=== PATIENT | female | born 1940 | race Caucasian/White ===

== ENCOUNTER 2016-12-23 10:35 | Inpatient (IN) | payer OTHER ==
[~2016-12-23] VITALS: Ht 172.7 cm; Wt 90.7 kg
--- NOTE | ~2016-12-23 | D ---
[facility] [place] [address] DISCHARGE SUMMARY Name: NEIL WILHELM Room #: 423-1 ADM IN M.R.#: [id number] Admission: 12/23/16 Attend Phys: Te Castellano MD Discharge: Date of : 40 Report #: [id number] THIS REPORT FOR: //name// CC: Shahbaz Zavala DATE OF SERVICE: 12/30/2016 HISTORY OF PRESENT ILLNESS: The patient is a 76-year-old female who presented to the Emergency Room with nausea, vomiting, and back pain. Please refer to the admission H and P for details. HOSPITALIZATION COURSE: The patient was hospitalized at [facility]. The patient was initially treated for gastroenteritis. She was started on Protonix. GI team was consulted. EGD showed gastritis, but no other major abnormalities revealed. For the back pain, the patient underwent MRI of the back that showed L1 fracture. IR was consulted, the patient had kyphoplasty. After the procedure, the pain almost resolved. The patient did well. The patient also has history of coronary artery disease. She had stress test that was negative. Cardiology has signed off the case. The patient has history of adrenal insufficiency, due to being on steroids for a long time for reported arthritis. Details are not specified. After increasing the prednisone dose, patient's self being improved significantly, and nausea has also resolved. Currently, the patient's condition is acceptable, as documented in the patient's chart. DISCHARGE DIAGNOSES: 1. Nausea and vomiting, resolved. EGD revealed gastritis. The patient is started on PPI. 2. Atypical chest pain, negative evaluation for acute coronary syndrome. Unremarkable stress test. 3. Back pain due to L1 vertebral fracture. Status post kyphoplasty. Clinically much better. 4. Chronic kidney disease stage 3. 5. Diabetes mellitus type 2. 6. Anxiety. 7. Dyslipidemia. 8. adrenal insufficiency, due to being on prednisone for reported "arthritis". Details are not specified. [facility] [address] [place] [address] DISCHARGE SUMMARY Name: NEIL WILHELM Room #: 423-1 ADM IN ..#: [id number] Admission: 12/23/16 Attend Phys: Te Castellano MD Discharge: Date of : 40 Report #: [id number] DISPOSITION: The patient is discharged home on home health. DISCHARGE MEDICATIONS: Please refer to the medication reconciliation list. FOLLOWUP PLAN: Follow up with the primary care physician in 1-2 weeks. I spent about 30 minutes to coordinate the patient's discharge from the hospital. By: 1134 1159 [place] MD /nt
--- NOTE | ~2016-12-23 | HC ---
[facility] [place] [address] CONSULTATION Name: NEIL WILHELM Room #: 423-1 ADM IN M.R.#: [id number] Admission: 12/23/16 Attend Phys: Te Castellano MD Discharge: Date of : 40 Report #: [id number] THIS REPORT FOR: //name// CC: Shahbaz Zavala REQUESTING PHYSICIAN: Dr. Te Castellano. CHIEF COMPLAINT: Abdominal pain and chest pain. HISTORY OF PRESENT ILLNESS: The patient is a 76-year-old female, with a history of diffuse coronary artery disease, who presented to the emergency room at [facility] with a resting chest discomfort, described predominantly as a neck discomfort, worsened with swallowing. It radiated downwards towards her chest. It is not associated with physical activity. She has chronic shortness of breath, which is new according to the patient. She is recovering from a fall with low back injury and was apparently hospitalized at [facility] after being initially evaluated at [facility]. She denies fevers or chills. She denies palpitations. She has a history of chronic lung disease and does use oxygen intermittently. PAST MEDICAL HISTORY: Coronary artery disease, status post cardiac catheterization in 2014 in [place] according to the patient. They thought she was having a heart attack, but was to told everything was "clear". Details of this are not available, she has hypertension, hyperlipidemia, and diabetes. She has chronic lung disease. She quit smoking this past August. HOME MEDICATIONS: Include O2 2 liters, albuterol, Advair, Maxzide daily, carvedilol 25 mg, which she only takes apparently once a day, aspirin 81 mg daily, atorvastatin 40 mg daily, fenofibrate 145 mg daily, and she has been on pain medicines, and she takes Lantus insulin. SOCIAL HISTORY: She is . Her is a patient of mine. FAMILY HISTORY: Positive for heart disease in her mother, at age 47. ALLERGIES: PENICILLIN, CONTRAST DYE, CODEINE, and METFORMIN. REVIEW OF SYSTEMS: [facility] [address] [place] [address] CONSULTATION Name: NEIL WILHELM Room #: 423-1 ADM IN ..#: [id number] Admission: 12/23/16 Attend Phys: Te Castellano MD Discharge: Date of : 40 Report #: [id number] GENERAL: Positive chills, no fevers. CARDIOVASCULAR: Positive for chest discomfort, no orthopnea, no PND, and no palpitations. NEUROLOGIC: No syncope or seizures. HEMATOLOGIC: No anemia. RENAL: No history of kidney failure. THROAT: Has dysphagia as noted above. GASTROINTESTINAL: Denies nausea or vomiting. Denies melena or hematochezia. CARDIOVASCULAR: Positive dyspnea on exertion. Positive chest discomfort. SKIN: No rashes. PHYSICAL EXAMINATION: VITAL SIGNS: Blood pressure is 148/92, pulse is 104, and respiratory rate is 18. GENERAL: This is a pleasant elderly female. She is alert and oriented. In no apparent distress. HEENT: EOMs intact. There is no facial asymmetry. NECK: Supple. There is no jugular venous distention. CARDIOVASCULAR: Regular. There is no murmur or rub. LUNGS: Clear to auscultation. ABDOMEN: Nontender. There is no rebound or guarding. EXTREMITIES: There is no peripheral edema. SKIN: Warm and dry. PSYCHIATRIC: The patient has appropriate mood and affect. DIAGNOSTIC DATA: Electrocardiogram dated 12/23/2016 shows a sinus rhythm with sinus tachycardia with normal ST segments. There is a comparison study from 2015, which was unchanged. LABORATORY DATA: Her hemoglobin is 12.2, white blood cell count is 9.4, and platelet count is 279,000. Sodium is 143, potassium is 3.5, chloride is 106, CO2 is 26, BUN is 28, creatinine is 1.3. Troponin I is 0.04 times 3 sets. IMAGING: CT of the abdomen and pelvis: Compression fracture, no acute abdominal or pelvic process. Chest x-ray shows scarring in the lung bases, old left rib fracture healed. No evidence of congestive heart failure or pneumonia. IMPRESSION: 1. Chest pain: Her symptoms could be related to worsening of her coronary artery disease process, or an esophageal abnormalities, such as hiatal hernia, given her distribution of symptoms. I arranged for further evaluation with a pharmacologic stress test. 2. Coronary artery disease: Stress test is ordered. If this is negative, I would continue with conservative medical therapy including aspirin and her carvedilol therapy. Nitrates may be helpful p.r.n. 3. Hypertension, stable. [address] [address] CONSULTATION Name: NEIL WILHELM Room #: 423-1 ADM IN M.R.#: [id number] Admission: 12/23/16 Attend Phys: Te Castellano MD Discharge: Date of : 40 Report #: [id number] 4. Diabetes mellitus, per our hospital colleagues. If her stress test is negative, she can follow up routinely with our nurse practitioner within 4 weeks at our [place] office or [facility] [place] office. <ELECTRONICALLY SIGNED> By: Jose R Richmond MD, FACC 12/30/16 0847 0842 1525 Jose R Richmond MD, FACC /nt
--- NOTE | ~2016-12-23 | P ---
[facility] [place] [address] PROCEDURE REPORT Name: NEIL WILHELM Room #: 423-1 ADM IN M.R.#: [id number] Admission: 12/23/16 Attend Phys: Te Castellano MD Discharge: Date of : 40 Report #: [id number] THIS REPORT FOR: //name// CC: Shahbaz Zavala DATE OF SERVICE: 12/25/2016 PROCEDURE PERFORMED: Upper endoscopy with biopsies and incomplete colonoscopy due to poor prep. HISTORY OF PRESENT ILLNESS: The patient is a 76-year-old female with history of chest pain. She does have a history of gastroesophageal reflux disease, takes Nexium on a daily basis, also takes aspirin as well as other medications. She has a history of colon polyps approximately 4-5 years ago, had a post-polypectomy bleed apparently at that time as well. Cardiac workup has been negative. Plan is for EGD and colonoscopy today. Of note, the patient also has a recent moderate superior endplate compression fracture of the L1 vertebral body. DESCRIPTION OF PROCEDURE #1: The risks and benefits of the procedure were explained to the patient, those risks including but not limited to bleeding, perforation, the risk of sedation. She understood these risks and gave informed consent. Sedation was given using propofol per anesthesia. Next, using a standard [employer] upper endoscope, the scope was placed in the patient's mouth and advanced under direct vision through the esophagus, stomach and into the second portion of the duodenum. The larynx was normal in appearance. The esophagus was normal throughout. The GE junction was normal. No evidence of esophagitis. Upon entering the stomach, a small hiatal hernia was noted. There was a mild gastritis noticed in the body. Biopsies were obtained to rule out H. pylori. No evidence of ulcerations or erosions. The pylorus was normal and patent. The duodenal bulb and first portion were normal. A moderate sized duodenal diverticulum was noted in the second portion of the duodenum. No evidence of ulcerations. Biopsies were obtained to rule out the possibility of celiac sprue. The scope was then withdrawn and the procedure terminated. The patient tolerated the procedure well. IMPRESSION: 1. Mild gastritis. 2. Small hiatal hernia. 3. Duodenal diverticulum. 4. Otherwise, normal upper endoscopy. RECOMMENDATIONS: [address] [address] PROCEDURE REPORT Name: NEIL WILHELM Room #: 423-1 ADM IN M.R.#: [id number] Admission: 12/23/16 Attend Phys: Te Castellano MD Discharge: Date of : 40 Report #: [id number] 1. Await biopsy results. 2. Continue PPI therapy. 3. We will proceed with colonoscopy next today. DESCRIPTION OF PROCEDURE #2: The bed was then turned and a digital rectal exam was initially performed, which actually showed small external hemorrhoids, otherwise normal. Next, using a standard [employer] colonoscope, the scope was placed in the patient's anus and advanced under direct vision through the rectum into the sigmoid. It was obvious at this point the prep was very poor with a large amount of solid stool. Therefore, the scope was then withdrawn and the procedure terminated. The patient tolerated the procedure well. IMPRESSION: Incomplete colonoscopy secondary to poor prep. RECOMMENDATIONS: Would recommend repeat potentially as an outpatient with 2-day prep or Suprep at that time. Thank you for allowing me to participate in her care. <ELECTRONICALLY SIGNED> By: Franco Bernard MD 12/26/16 1217 1423 2244 Franco Bernard MD /nt
--- NOTE | ~2016-12-23 | EKG ---
[address] [address] ELECTROCARDIOGRAM REPORT Name: NEIL WILHELM Room #: 423-1 ADM IN M.R.#: [id number] Admission: 12/23/16 Attend Phys: Te Castellano MD Discharge: Date of : 40 Report #: [id number] THIS REPORT FOR: //name// [facility] ED Test Date: 2016-12-23 Test Time: 10:49:56 Pat Name: NEIL WILHELM Department: Room: [facility] Gender: F Diversity Intern: VINAY : 1940 Requested By: Marian Vigil Order Number: [id number] MD: Rory Gay Measurements Intervals [place] Rate: 110 P: 63 TX: 140 QRS: 12 QRSD: 82 T: 66 QT: 324 QTc: 439 Interpretive Statements Sinus tachycardia Atrial premature complexes Minimal ST depression, lateral leads Electronically Signed On 12-27-2016 8:11:27 CDT by Rory Gay [email or web address] <ELECTRONICALLY SIGNED> By: Rory Gay MD 12/27/16 0811 1049 1049 Rory Gay MD /TOSHIA
--- NOTE | ~2016-12-23 | CARDNUC ---
[facility] [place] [address] CARDIAC NUCLEAR IMAGING REPORT Name: NEIL WILHELM Room #: 423-1 ADM IN M.R.#: [id number] Admission: 12/23/16 Attend Phys: Alda Johnson Discharge: Date of : 40 Date of Service: 12/24/16 1617 Report #: [id number] THIS REPORT FOR: //name// CC: Shahbaz Zavala This is a Lexiscan Cardiolite stress test. VASODILATOR GATED SPECT MYOCARDIAL PERFUSION IMAGING: Regadenoson. PRIMARY CARE PHYSICIAN: Shahbaz Akins MD. HOSPITALIST: Te Castellano MD. REFERRING SPECIAL POLICE OFFICER: Gilbert Zavala MD and Jose R Richmond MD [facility] DATE OF STUDY: 12/24/2016. INDICATIONS FOR STUDY: Chest pain and dyspnea. RISK FACTORS: Age, hyperlipidemia, hypertension, diabetes, tobacco use and family history. CARDIAC HISTORY: Known coronary artery disease status post myocardial infarction. CARDIAC MEDICATIONS: Aspirin, Lipitor, hydrochlorothiazide triamterene, magnesium and insulin. GENDER: Female. PROCEDURE: The patient was given 0.4 mg of intravenous regadenoson (Lexiscan) administered over approximately 20 seconds. The patient did not complain of chest discomfort during the infusion but did have nausea and vomiting. In response to complaints of chest discomfort the patient was given intravenous aminophylline 5 mL IV with resolution of the nausea and vomiting. At baseline the BP was 151/82 and the HR was 96; at completion of the regadenoson infusion the BP was 165/101 and the HR was 124. At completion of the recovery phase the BP was 149/76 and the HR was 108. The baseline EKG demonstrates normal sinus rhythm with low voltage. The EKG at completion of the administration of regadenoson demonstrated no significant change in EKG during or after regadenoson administration. There was no significant ST-segment depression during or after regadenoson administration. Rhythm disturbances included none. [facility] [place] [address] CARDIAC NUCLEAR IMAGING REPORT Name: NEIL WILHELM Room #: 423-1 ADM IN M.R.#: [id number] Admission: 12/23/16 Attend Phys: Alda Johnson Discharge: Date of : 40 Date of Service: 12/24/16 1617 Report #: [id number] Gated-SPECT myocardial perfusion imaging was performed using a 1-day imaging protocol and a single isotope technique. The 10.7 mCi of Tc-99m sestamibi was administered intravenously at rest; 33.6 mCi of Tc-99m sestamibi was administered intravenously within 20 seconds of the completion of the administration of regadenoson. Imaging was obtained in the supine position and when feasible, adjunctive stress imaging in the prone position was obtained. FINDINGS: The overall quality of the study was adequate. There was minimal evidence of attenuation artifact. There was no evidence of abnormal extracardiac uptake of the radionuclide. The baseline imaging study demonstrated a small mild apical defect and a small mild inferior defect. The imaging obtained following the administration of the vasodilator demonstrated only a very small, very mild apical defect and a very small, very mild inferior defect. There were therefore no reversible defects seen. There was no evidence of myocardial ischemia. The fixed defect seen likely represents attenuation artifact. On gated analysis the left ventricle demonstrated hyperdynamic left ventricular systolic function with an ejection fraction of 93%. The left ventricle was of normal size at rest and did not appear by visual inspection to dilate with the administration of the vasodilator. To my eye, the TID was less than 1. This patient had very small left ventricular internal dimensions, so computer measurement of the endocardial border was probably compromised. The TID calculated by the computer was 1.19, but again to my eye, the TID was less than 1. IMPRESSIONS: CLINICAL RESPONSE: Probably nonischemic. STRESS EKG RESPONSE: By strict criteria, nondiagnostic due to heart rate that was inadequate to exclude ischemia; however, the heart rate was very near a diagnostic heart rate and this is probably a nonischemic EKG response. MYOCARDIAL PERFUSION STUDY: Nonischemic. FUNCTIONAL CAPACITY: Not assessed. CONCLUSIONS: The Lexiscan Cardiolite stress test demonstrates low probability for myocardial ischemia. Overall, this is a low risk Lexiscan Cardiolite stress test. <ELECTRONICALLY SIGNED> By: Josy Reyna MD, [facility] 12/30/16 1124 1617 1644 Josy Reyna MD, FACC /nt
--- NOTE | ~2016-12-23 | S ---
[facility] [place] [address] SURGICAL PATH RPT PROCEDURE Name: NEIL LYLE Room #: 423-1 ADM IN M.R.#: [id number] Admission: 12/23/16 Date of : 40 Discharge: Report #: [id number] Path Case #: [id number] PATHOLOGY REPORT COLLECTION DATE: 12/25/2016 RECEIVED DATE: 12/27/2016 SUBMITTING PHYS: Dr. Franco Bernard OTHER PHYS: Dr. Gilbert Tiwari SPECIMEN(S) RECEIVED: A.Bx of duodenum B.Bx of gastritis * * * * * * * * * * * * FINAL DIAGNOSIS: A. Small bowel mucosa, duodenum, endoscopic biopsy: - Focal acute inflammation with fundic-type metaplasia, compatible with mild peptic duodenitis. - No significant villous blunting or increase in intraepithelial lymphocytosis identified. B. Gastric mucosa, gastritis, endoscopic biopsy: - Moderate reactive gastropathy with focal active gastritis. - Negative for intestinal metaplasia or atrophy. - Negative for Helicobacter pylori. COMMENT: Helicobacter pylori immunohistochemical stain performed on block B1 negative. (IUV:csd; d/t: 12/28/2016) PATHOLOGIST: Sophia Florez M.D. REPORT ELECTRONICALLY SIGNED BY: Sophia Florez M.D. DATE/TIME: 12/28/2016 16:56 * * * * * * * * * * * * GROSS PATHOLOGY: A. Received in formalin labeled "Neil Lyle, BX duodenum," are 4 segments of rich soft tissue measuring 1.4 x 0.3 x 0.2 cm in aggregate dimensions and ranging from 0.1 to 0.6 cm in maximum dimension. The specimen is submitted entirely in cassette A1. B. Received in formalin labeled " Neil Lyle BX of gastritis," are 5 segments of rich soft tissue measuring 1.7 x 0.2 x 0.2 cm in aggregate dimensions and ranging from 0.2 to 0.6 cm in maximum dimension. The specimen is submitted entirely in cassette B1. [address] [address] SURGICAL PATH RPT PROCEDURE Name: NEIL LYLE Room #: 423-1 ADM IN M.R.#: [id number] Admission: 12/23/16 Date of : 40 Discharge: Report #: [id number] Path Case #: [id number] (GISEL; 12/27/2016) CLINICAL HISTORY: N/V, abdominal pain INITIAL CPT CODE(S): A; 24257 B; 42202, 86285 Professional services performed by [facility] at [address], [place] [address] Technical services performed by [facility] at [address] [place] [address], [address], [place] [address]. [facility] [address] [address] [place] [address] PHONE: [phone] DIRECTOR: Nadir Murdock M.D. * * * END OF REPORT * * *
[~2016-12-23 10:35] MED LIST: ACETAMINOPHEN325 M1 PO; ADULT LOW DOSE81 MG PO; ADVAIR HFA115 MCG/21 INH; APAP500 PO; ATIVAN0.5 MG PO; AVELOX 400 MG400 M1 PO; BYETTA PEN 11 PENIN1 SUBQ; CARVEDILOL25 MG PO; DUONEB 2.5-0.5 M3 ML INH; GLIPIZIDE ER10 MG PO; GLUCOPHAGE XR500 MG PO; GLUCOPHAGE XR750 MG PO; GLUMETZA1000 PO; LANTUS SQ; LANTUS SUBQ; LIPITOR40 MG PO; LOTREL 5-20 MG1 EACH PO; MAXZIDE-25 MG1 EACH PO; MUCINEX600 MG PO; NOVOLOG100 UNIT/1 PO; NOVOLOG100 UNIT/1 SQ; PREDNISONE 10 M10 M1; PROTONIX40 M1 PO; PROTONIX40 M2 PO; TRICOR145 MG PO; VICTOZA0.6 MG/0.1 SUBQ; VOLTAREN GEL 1100 G2 TOP
[2016-12-23 10:42] VITALS: BP 151/91
[2016-12-23] MEDS ORDERED: LIDODERM 5%1 PATC1 TRANSDERM (11:08)
[2016-12-23] MEDS ORDERED: FLEXERIL PO (11:08)
[2016-12-23] MEDS ORDERED: CAL-GEST200 MG PO (11:09)
[2016-12-23] MEDS ORDERED: TYLENOL325 MG PO (11:09)
[2016-12-23] MEDS ORDERED: MAGOX 400400 MG PO (11:09)
[2016-12-23] MEDS ORDERED: ATORVASTATIN CA40 MG PO (11:09)
[2016-12-23] MEDS ORDERED: PREDNISONE 10 M10 MG PO (11:09)
[2016-12-23] MEDS ORDERED: MAXZIDE-25 MG1 EACH PO (11:10)
[2016-12-23] MEDS ORDERED: CYMBALTA20 MG PO (11:10)
[2016-12-23] MEDS ORDERED: COREG25 MG PO (11:10)
[2016-12-23 11:12] LABS: BASOPHILS 0.6 % (0.0-2.0); EOSINOPHILS 2.2 % (0.0-3.0); HEMATOCRIT 43.9 % (37.0-47.0); LYMPHOCYTES 32.2 % (24.0-44.0); MCH 29.8 pg (26.0-34.0); MCV 93.1 fL (80.0-100.0); PLATELET COUNT 264 thou/uL (150-400); RBC 4.72 mil/uL (4.20-5.00); RDW 14.4 % (10.5-14.5); WBC 14.2 thou/uL (4.0-11.0)
[2016-12-23 11:14] LABS: MANUAL DIFF NO
[2016-12-23 11:15] LABS: CALCIUM 9.2 mg/dL (8.5-10.1); CREATININE 1.6 mg/dL (0.6-1.0); POTASSIUM 3.9 mmol/L (3.5-5.1)
[2016-12-23 11:35] LABS: ALBUMIN 3.8 g/dL (3.4-5.0); ALKALINE PHOSPHATASE 158 U/L (46-116); DIRECT BILIRUBIN 0.3 mg/dL (<0.1-0.3); NT-PRO BRAIN NAT PEPTIDE 104 pg/mL (<300); SGOT 20 U/L (15-37); SGPT 24 U/L (30-65); TOTAL BILIRUBIN 0.7 mg/dL (<0.1-1.0); TOTAL PROTEIN 7.8 g/dL (6.4-8.2); TROPONIN-I < 0.04 ng/mL (<0.04-0.07)
[2016-12-23 14:43] VITALS: BP 149/82
[2016-12-23 16:21] VITALS: BP 146/75
[2016-12-23 16:52] LABS: TROPONIN-I < 0.04 ng/mL (<0.04-0.07)
[2016-12-23 20:00] VITALS: BP 149/80
[2016-12-23 22:33] LABS: TROPONIN-I < 0.04 ng/mL (<0.04-0.07)
[2016-12-24 04:00] VITALS: BP 141/86
[2016-12-24 05:52] LABS: HEMATOCRIT 37.7 % (37.0-47.0); HEMOGLOBIN 12.2 gm/dL (12.0-15.0); MCH 30.4 pg (26.0-34.0); MCHC 32.4 g/dL (28.0-37.0); MCV 93.7 fL (80.0-100.0); RBC 4.03 mil/uL (4.20-5.00); RDW 14.2 % (10.5-14.5); WBC 9.4 thou/uL (4.0-11.0)
[2016-12-24 06:09] LABS: ALBUMIN 3.1 g/dL (3.4-5.0); CALCIUM 8.5 mg/dL (8.5-10.1); CREATININE 1.3 mg/dL (0.6-1.0); POTASSIUM 3.5 mmol/L (3.5-5.1); TOTAL BILIRUBIN 0.6 mg/dL (<0.1-1.0); TOTAL PROTEIN 6.4 g/dL (6.4-8.2)
[2016-12-24 07:52] VITALS: BP 148/92
[2016-12-24 13:10] VITALS: BP 130/66
[2016-12-24 15:28] VITALS: BP 141/75
[2016-12-24] MEDS ORDERED: TRULICITY0.75 MG/0. SQ (19:28)
[2016-12-24 20:00] VITALS: BP 132/65
[2016-12-25 04:00] VITALS: BP 132/62
[2016-12-25 04:42] LABS: HEMATOCRIT 36.3 % (37.0-47.0); HEMOGLOBIN 12.2 gm/dL (12.0-15.0); MCH 31.1 pg (26.0-34.0); MCHC 33.5 g/dL (28.0-37.0); MCV 92.7 fL (80.0-100.0); RBC 3.91 mil/uL (4.20-5.00); RDW 14.2 % (10.5-14.5); WBC 9.3 thou/uL (4.0-11.0)
[2016-12-25 05:03] LABS: CALCIUM 8.9 mg/dL (8.5-10.1); CREATININE 1.3 mg/dL (0.6-1.0)
[2016-12-25 05:24] LABS: POTASSIUM 4.6 mmol/L (3.5-5.1)
[2016-12-25 06:58] VITALS: BP 135/78
[2016-12-25 16:07] VITALS: BP 145/74
[2016-12-25 20:15] VITALS: BP 126/65
[2016-12-26 04:30] VITALS: BP 132/67
[2016-12-26 07:44] VITALS: BP 98/73
[2016-12-26 07:52] VITALS: BP 116/68
[2016-12-26 09:35] VITALS: BP 133/64
[2016-12-26 15:44] VITALS: BP 111/73
[2016-12-26 20:00] VITALS: BP 130/82
[2016-12-27 04:00] VITALS: BP 101/54
[2016-12-27 07:20] VITALS: BP 125/66
[2016-12-27 11:02] LABS: HEMATOCRIT 34.7 % (37.0-47.0); HEMOGLOBIN 11.7 gm/dL (12.0-15.0); MCH 30.8 pg (26.0-34.0); MCHC 33.7 g/dL (28.0-37.0); MCV 91.4 fL (80.0-100.0); RBC 3.8 mil/uL (4.20-5.00); RDW 13.9 % (10.5-14.5); WBC 9.5 thou/uL (4.0-11.0)
[2016-12-27 11:17] LABS: INR 1.1; PROTIME 11.4 Seconds (9.3-11.4)
[2016-12-27 15:58] VITALS: BP 102/45
[2016-12-27 20:42] VITALS: BP 134/77
[2016-12-28] VITALS (10 sets, daily range): BP systolic 101–149; BP diastolic 49–79
[2016-12-29 04:18] VITALS: BP 101/51
[2016-12-29 07:44] VITALS: BP 147/78
[2016-12-29 16:17] VITALS: BP 128/55
[2016-12-29 20:00] VITALS: BP 132/69
[2016-12-30 04:00] VITALS: BP 136/60
[2016-12-30 07:35] VITALS: BP 151/72
[2016-12-30] MEDS ORDERED: PANTOPRAZOLE SO40 M1 PO (11:38)
[2016-12-30] MEDS ORDERED: PREDNISONE 10 M10 MG PO (11:38)
[2016-12-30 12:19] VITALS: BP 151/72
[2016-12-30 13:22] VITALS: BP 151/72
== END 2016-12-30 14:34 | disposition home health service (06) | DRG 515 ==
LOC: ER 10:35 → 4E 14:02 → EROBS 14:02 → 4E 14:45
PROVIDERS: Emergency Medicine; Family Medicine; Nurse Practitioner Family; Radiology Vascular & Interventional Radiology
PROC: 0DB68ZX Excision of Stomach, Via Natural or Artificial Opening Endoscopic, Diagnostic (ICD-10-PCS; 2016-12-25)
PROC: 0DB98ZX Excision of Duodenum, Via Natural or Artificial Opening Endoscopic, Diagnostic (ICD-10-PCS; 2016-12-25)
PROC: 0DJD8ZZ Inspection of Lower Intestinal Tract, Via Natural or Artificial Opening Endoscopic (ICD-10-PCS; 2016-12-25)
PROC: 0QU03JZ Supplement Lumbar Vertebra with Synthetic Substitute, Percutaneous Approach (ICD-10-PCS; principal; 2016-12-28)
PROC: 0QS03ZZ Reposition Lumbar Vertebra, Percutaneous Approach (ICD-10-PCS; principal; 2016-12-28)
DX: S32.019A Unspecified fracture of first lumbar vertebra, initial encounter for closed fracture (principal); R65.11 Systemic inflammatory response syndrome (SIRS) of non-infectious origin with acute organ dysfunction; N17.9 Acute kidney failure, unspecified; I13.0 Hypertensive heart and chronic kidney disease with heart failure and stage 1 through stage 4 chronic kidney disease, or unspecified chronic kidney disease; E27.3 Drug-induced adrenocortical insufficiency; E78.5 Hyperlipidemia, unspecified; M19.012 Primary osteoarthritis, left shoulder; F41.9 Anxiety disorder, unspecified; I25.10 Atherosclerotic heart disease of native coronary artery without angina pectoris; K44.9 Diaphragmatic hernia without obstruction or gangrene; K29.70 Gastritis, unspecified, without bleeding; E11.22 Type 2 diabetes mellitus with diabetic chronic kidney disease; N18.3 Chronic kidney disease, stage 3 (moderate); I50.9 Heart failure, unspecified; M81.0 Age-related osteoporosis without current pathological fracture; J44.9 Chronic obstructive pulmonary disease, unspecified; K21.9 Gastro-esophageal reflux disease without esophagitis; Y93.89 Activity, other specified; W18.39XA Other fall on same level, initial encounter; Y92.89 Other specified places as the place of occurrence of the external cause; Y99.8 Other external cause status; Z90.49 Acquired absence of other specified parts of digestive tract; I25.2 Old myocardial infarction; Z88.0 Allergy status to penicillin; Z88.6 Allergy status to analgesic agent; Z91.041 Radiographic dye allergy status; Z87.891 Personal history of nicotine dependence; Z82.49 Family history of ischemic heart disease and other diseases of the circulatory system; Z80.0 Family history of malignant neoplasm of digestive organs; Z80.1 Family history of malignant neoplasm of trachea, bronchus and lung; Z79.82 Long term (current) use of aspirin; Z79.899 Other long term (current) drug therapy
CPT/HCPCS: 10183; 62110; 62900; 70005